=== PATIENT | female | born 1945 | race Caucasian/White ===

== ENCOUNTER 2016-10-23 19:17 | Emergency (ER) | payer OTHER ==
[2016-10-23 19:26] VITALS: TEMP 99.3
[2016-10-23] MEDS ORDERED: IBUPROFEN 200 MG TAB PO ONE (19:52)
--- NOTE | 2016-10-23 21:30 | EDPHY ---
H & P HPI/ROS: CHIEF COMPLAINT: Left elbow pain History by patient HISTORY OF PRESENT ILLNESS: 7-year-old woman presents complaining of left elbow pain after mechanical fall. Patient says she accidentally tripped and that went down striking her left elbow when she heard a crack. She has been unable to move it since due to pain. She denies any numbness tingling or weakness in her fingers or hands. She took a 1000 mg of Tylenol with minimal relief of her pain. REVIEW OF SYSTEMS: As in HPI, and all other systems reviewed and are negative Physical Exam: General Appearance: Alert and no distress. Eyes: Pupils equal and round no injection. Musculoskeletal: Neck is supple and nontender. Extremities: Left arm held in 90 degree flexion at the elbow. Positive tenderness swelling and ecchymoses over the olecranon. Limited range of motion at elbow due to pain and unable to rotate wrist due to pain. Positive distal sensation in all her fingers. Patient moves all her fingers. Radial pulses 2+ and equal to the right. No shoulder or humerus tenderness. Positive ecchymoses right knee, no deformity, full range of motion, no ligamental laxity, distal sensation and pulses intact Skin: No rashes or lesions except as above Constitutional: Initial Vital Signs Temperature (C) 37.4 C 10/23/16 19:23 Heart Rate 80 10/23/16 19:23 Respiratory Rate 18 10/23/16 19:23 Blood Pressure 138/73 H 10/23/16 19:23 O2 Sat (%) 94 10/23/16 19:23 O2 Delivery Mode Room Air Allergies/Adverse Reactions: erythromycin base [Erythromycin Base] Allergy (Verified 10/23/16 19:26) Penicillins Allergy (Verified 10/23/16 19:26) Home Medications: Medication Instructions Recorded None 02/19/09 Hydrocodone/APAP 5/325 [[place] 1 - 2 tab PO Q4H PRN #20 tab 10/23/16 5/325 (*)] MDM/Departure - MDM Imaging Results: Imaging Impressions Elbow X-Ray 10/23/16 19:29 Impression: Comminuted displaced intraarticular fracture of the proximal ulna and minimally displaced fracture of the radial head. Joint effusion. Medications Given: Discontinued Medications Ibuprofen (Motrin) 600 mg PO EDNOW ONE Stop: 10/23/16 19:53 Last Admin: 10/23/16 20:10 Dose: 600 mg ED Course/Re-evaluation: 70-year-old woman presents complaining of left elbow pain after fall. X-ray shows comminuted olecranon fracture and radial head fracture. There is no evidence of neurovascular compromise. Patient was placed in sugar-tong splint with a shoulder immobilizer sling. I discussed the case with Dr. Baeza, [place] [facility], who will arrange to see the patient in follow-up as an outpatient on Sunday. He suggested the patient be more comfortable in a posterior long-arm cast however the patient declined to have the splint changed stating she was currently comfortable. We discussed home care and follow-up with Orthopedics. Patient understands and is agreeable to this plan. - Depart Disposition: Home, Routine, Self-Care Clinical Impression: Closed olecranon fracture Qualifiers: Encounter type: initial encounter Laterality: left Qualified Code(s): S52.022A - Displaced fracture of olecranon process without intraarticular extension of left ulna, initial encounter for closed fracture Radial head fracture, closed Qualifiers: Encounter type: initial encounter Fracture alignment: displaced Laterality: left Qualified Code(s): S52.122A - Displaced fracture of head of left radius, initial encounter for closed fracture Condition: Fair Instructions: Elbow Fracture (ED) Additional Instructions: You were seen by Dr. Iwona Ferrell today. Dr. Durán's office should call you tomorrow to schedule an appointment on Sunday. Take ibuprofen 600 mg 4 times a day for pain. You may ice your elbow for pain control through the splint. Keep splint clean and dry. Take [place] as needed for severe pain. Do not take additional acetaminophen at the same time you are [place]. Return for any worsening or new concerns. Prescriptions: Hydrocodone/APAP 5/325 [[place] 5/325 (*)] 1 - 2 tab PO Q4H PRN #20 tab PRN Reason: Pain, Moderate Referrals: NONE *PRIMARY CARE P,. [Primary Care Provider] - As per Instructions Grey Baeza MD [Medical Doctor] - As per Instructions
[2016-10-23] MEDS ORDERED: HYDROCOD/APAP 5/325 PREPACK#6 BTL TAKEHOME ONE (21:42)
[2016-10-23 22:40] VITALS: BP 151/84; PULSE 74; RESP 16; O2SAT 93
== END 2016-10-23 21:45 | disposition home or self-care (01) ==
LOC: CED 19:17
DX: S52.022A Displaced fracture of olecranon process without intraarticular extension of left ulna, initial encounter for closed fracture (principal); S52.122A Displaced fracture of head of left radius, initial encounter for closed fracture; W01.198A Fall on same level from slipping, tripping and stumbling with subsequent striking against other object, initial encounter; Y92.009 Unspecified place in unspecified non-institutional (private) residence as the place of occurrence of the external cause
CPT/HCPCS: 73080; 99283; A4565

== ENCOUNTER → 2016-10-25 | Outpatient (CLI) | payer OTHER | LOC: FIMAGING 16:32 | PROVIDERS: ATTEND Orthopaedic Surgery Foot and Ankle Surgery | DX: S52.022A Displaced fracture of olecranon process without intraarticular extension of left ulna, initial encounter for closed fracture (principal); S52.122A Displaced fracture of head of left radius, initial encounter for closed fracture ==

== ENCOUNTER → 2018-04-22 | Outpatient (CLI) | payer OTHER | LOC: CIMAGING 07:19 | PROVIDERS: ATTEND Family Medicine | DX: K82.4 Cholesterolosis of gallbladder (principal); N28.1 Cyst of kidney, acquired | CPT/HCPCS: 76700-PO ==

== ENCOUNTER → 2018-09-15 | Outpatient (CLI) | payer OTHER | LOC: FCPNEURO 20:30 | PROVIDERS: ATTEND Student in an Organized Health Care Education/Training Program | DX: G47.33 Obstructive sleep apnea (adult) (pediatric) (principal) ==